=== PATIENT | female | born 1965 | race Caucasian/White ===

== ENCOUNTER 2019-03-02 20:51 | Emergency (ER) | payer MEDICARE, BC ==
[~2019-03-02] VITALS: Ht 160 cm; Wt 86.0 kg
[~2019-03-02 20:51] MED LIST: DIVA500T33; QUET150T
[2019-03-02 20:57] VITALS: Ht 160 cm; Wt 86.0 kg
--- NOTE | 2019-03-02 23:22 | ERD ---
ER Documentation Chief Complaint Chief Complaint abd pain x 1 week; denies n/v/diarrhea HPI The patient is a 54-year-old female, presenting to the ER because of intermittent right upper quadrant abdominal pain for 1 week, had similar symptoms previously, denies fever, chills, neck pain, chest pain, dyspnea, vomiting, dizzy, diarrhea. She does not smoke or drink Medical history: Schizophrenia Past surgical history: Cholecystectomy, hysterectomy ROS All systems reviewed and are negative except as per history of present illness. Medications Home Meds Active Scripts Ibuprofen* (Motrin*) 600 Mg Tab, 600 MG PO Q6H PRN for PAIN AND OR ELEVATED TEMP, #20 TAB Prov:TRENT DEL REAL MD 03/03/19 Reported Medications Quetiapine Fumarate* (Seroquel* XR) 150 Mg Tab.sr.24h 02/06/11 Discontinued Reported Medications Divalproex Sodium (Depakote) 500 Mg Tablet. 02/06/11 Allergies Allergies: Coded Allergies: No Known Drug Allergies (Unverified Allergy, Mild, 03/03/19) PMhx/Soc History of Surgery: Yes (cholesystectomy) Anesthesia Reaction: No Hx Neurological Disorder: No Hx Respiratory Disorders: No Hx Cardiac Disorders: No Hx Psychiatric Problems: Yes (bipolar) Hx Miscellaneous Medical Probl: No Hx Alcohol Use: No Hx Substance Use: No Hx Tobacco Use: No Physical Exam Vitals Vital Signs Date Temp Pulse Resp B/P (MAP) Pulse Ox O2 O2 Flow FiO2 Time Delivery Rate 03/03/19 97.7 79 15 105/79 96 Room Air 02:30 (88) 03/03/19 77 18 112/77 100 Room Air 01:41 (89) 03/02/19 98.9 80 20 136/89 98 20:57 (105) Physical Exam Const: No acute distress. Head: Atraumatic. Eyes: Normal Conjunctiva. ENT: Normal External Ears, Nose and Mouth. Neck: Full range of motion. No meningismus. Resp: Clear to auscultation bilaterally. Cardio: Regular rate and rhythm. Abd: Soft, non distended, normal bowel sounds, non tender. Skin: No petechiae or rashes. Back: No midline or flank tenderness. Ext: No cyanosis, or edema. Neur: Awake and alert. No focal deficit Psych: Normal Mood and Affect. Result Diagram: 03/02/19 2333 03/02/19 2333 Results 24 hrs Laboratory Tests Test 03/02/19 23:33 03/02/19 23:41 03/03/19 00:52 White Blood Count 7.7 10^3/ul Red Blood Count 5.04 10^6/ul Hemoglobin 14.0 g/dl Hematocrit 42.8 % Mean Corpuscular Volume 84.9 fl Mean Corpuscular Hemoglobin 27.8 pg Mean Corpuscular 32.7 g/dl Hemoglobin Concent Red Cell Distribution Width 12.8 % Platelet Count 217 10^3/UL Mean Platelet Volume 11.3 fl Immature Granulocytes % 0.300 % Neutrophils % 60.0 % Lymphocytes % 27.3 % Monocytes % 6.6 % Eosinophils % 5.2 % Basophils % 0.6 % Nucleated Red Blood Cells % 0.0 /100WBC Immature Granulocytes # 0.020 10^3/ul Neutrophils # 4.6 10^3/ul Lymphocytes # 2.1 10^3/ul Monocytes # 0.5 10^3/ul Eosinophils # 0.4 10^3/ul Basophils # 0.1 10^3/ul Nucleated Red Blood Cells # 0.0 10^3/ul Sodium Level 142 mmol/L Potassium Level 3.7 mmol/L Chloride Level 105 mmol/L Carbon Dioxide Level 26 mmol/L Anion Gap 11 Blood Urea Nitrogen 13 mg/dl Creatinine 0.63 mg/dl Est Glomerular Filtrat Rate mL/min > 60 mL/min Glucose Level 98 mg/dl Calcium Level 9.0 mg/dl Total Bilirubin 0.3 mg/dl Direct Bilirubin 0.00 mg/dl Indirect Bilirubin 0.3 mg/dl Aspartate Amino Transf (AST/SGOT) 26 IU/L Alanine 40 IU/L Aminotransferase (ALT/SGPT) Alkaline Phosphatase 108 IU/L Total Protein 7.7 g/dl Albumin 4.4 g/dl Globulin 3.30 g/dl Albumin/Globulin Ratio 1.33 Lipase 59 U/L Bedside Urine pH (LAB) 6.0 Bedside Urine Protein (LAB) Negative Bedside Urine Glucose (UA) Negative Bedside Urine Ketones (LAB) Negative Bedside Urine Blood Negative Bedside Urine Nitrite (LAB) Negative Bedside Urine Leukocyte Esterase Negative (L POC Beta HCG, Qualitative NEGATIVE Current Medications Medications Dose Sig/Funmilayo Start Time Status Last (Trade) Ordered Route PRN Stop Time Admin Dose Reason Admin Ketorolac 30 mg ONCE ONCE 03/03/19 DC 03/03/19 Tromethamine IV 01:51 02:11 (Toradol) 03/03/19 01:52 Procedures/MDM MEDICAL MAKING DECISION: The patient is a 54-year-old female, presenting with acute abdominal pain of unclear etiology, was treated with Toradol 30 mg IV for pain with good response. The differential diagnoses considered include but are not limited to choledocholithiasis, cholangitis, pancreatitis, hepatitis, gastritis, peptic ulcer disease, gastric ulcer, appendicitis, cystitis, diverticulitis, partial small bowel obstruction. Departure Diagnosis: Primary Impression: Abdominal pain Condition: Good Comments She was discharged with Motrin I discussed the findings with the patient. I advised the patient to follow-up with the primary physician in about 2-3 days, sooner if needed and return if any concern. Disclaimer: Inadvertent spelling and grammatical errors are likely due to EHR/dictation software use and do not reflect on the overall quality of patient care. Also, please note that the electronic time recorded on this note does not necessarily reflect the actual time of the patient encounter. TRENT DEL REAL MD Mar 02, 2019 23:22
[2019-03-03] MEDS ORDERED: KETOROLAC 30 MG INJ IV ONE (01:51)
[2019-03-03] MEDS ORDERED: IBUP-1542 PO (01:51)
[2019-03-03 02:30] VITALS: BP 105/79; PULSE 79; RESP 15
== END 2019-03-03 02:30 | disposition home or self-care (01) ==
LOC: E/R 20:51
DX: R10.11 Right upper quadrant pain (principal)
CPT/HCPCS: 36415; 80053; 81003; 81025; 83690; 85025; 96372; 99284; J1885